=== PATIENT | female | born 1990 | race African-American/Black ===

== ENCOUNTER 2017-04-08 15:34 | Emergency (ER) | payer OTHER ==
[2017-04-08 15:39] VITALS: TEMP 98.1; BMI 24.9
--- NOTE | 2017-04-08 16:07 | PDOC ---
History of Present Illness - General Chief Complaint: Vaginal Bleeding Stated Complaint: VAGINAL BLEEDING Time Seen by Provider: 04/08/17 15:57 History Source: Patient Exam Limitations: No Limitations - History of Present Illness Travel History: No Initial Comments: 04/08/17 16:04 27 yr female with c/o vaginal bleeding for 9 days. Pt states lower abd "fullness , bloating" sensation . Pt states her last normal menstrual period was 03/13/17 for 7 days , then bleeding started on 03/30/17. no dizzyness or back pain, no urinary complaints. no control or history of any use of hormonal BC. Timing/Duration: reports: constant, getting worse Past History - Past Medical History Allergies/Adverse Reactions: Allergies Allergy/AdvReac Type Severity Reaction Status Date / Time No Known Allergies Allergy Verified 04/08/17 15:35 Home Medications: Ambulatory Orders Naproxen [Naprosyn -] 500 mg PO BID PRN #14 tablet 09/11/15 Other medical history: none - Immunization History Immunization Up to Date: No - Suicide/Smoking/Psychosocial Hx Smoking Status: Yes Smoking History: Never smoked Have you smoked in the past 12 months: Yes Number of Cigarettes Smoked Daily: 7 Information on smoking cessation initiated: Yes 'Breaking Loose' booklet given: 04/08/17 Hx Alcohol Use: No Drug/Substance Use Hx: No Substance Use Type: None Abd/GI Specific PMHX - Complaint Specific PMHX Colitis: No Diverticulitis: No Gall Bladder Disease: No GERD: No Hepatitis: No Irritable Bowel Synd (IBS): No Pancreatitis: No GI Ulcer Disease: No Review of Systems - Review of Systems Able to Perform ROS?: Yes Is the patient limited [place] proficient: No Constitutional: No: Symptoms Reported HEENTM: No: Symptoms Reported, Dental Problems Respiratory: No: Symptoms reported, Other Cardiac (ROS): No: Symptoms Reported ABD/GI: No: Symptoms Reported : Yes: Symptoms Reported Musculoskeletal: No: Symptoms Reported Integumentary: No: Symptoms Reported Neurological: No: Symptoms reported *Physical Exam - Vital Signs Last Vital Signs Temp Pulse Resp BP Pulse Ox 98.1 F 87 18 139/83 100 04/08/17 15:35 04/08/17 15:35 04/08/17 15:35 04/08/17 15:35 04/08/17 15:35 - Physical Exam General Appearance: Yes: Nourished, Appropriately Dressed HEENT: positive: EOMI, GLADIS. negative: TM Erythema Neck: positive: Supple. negative: Tender Respiratory/Chest: positive: Lungs Clear, Normal Breath Sounds Cardiovascular: positive: Regular Rhythm, Regular Rate Female Pelvic Exam: positive: normal external exam, vaginal bleeding Gastrointestinal/Abdominal: positive: Normal Bowel Sounds, Soft. negative: Tender Lymphatic: negative: Adenopathy Musculoskeletal: positive: Normal Inspection Extremity: positive: Normal Capillary Refill, Normal Inspection, Normal Range of Motion Neurologic: positive: Fully Oriented, Alert, Normal Mood/Affect, Normal Response , Motor Strength 11/02 Medical Decision Making - Medical Decision Making 04/08/17 16:56 cc: abnormal vaginal bleeding started on 03/30/17 denies pain, c/o lower abd "fullness" with occasional clots will r/o US 04/08/17 17:21 negative urine pt does not want to have US done in ER will follow with her prescription benefit specialist, I agree pt can follow up as outpatient as pt is stable having no acute distress, no dizzyness or pain. I have verbally given the instructions to the patient and all questions have been asked and answered. pt is satisfied with the care. 04/08/17 17:22 *DC/Admit/Observation/Transfer Diagnosis at time of Disposition: Abnormal vaginal bleeding - Discharge Dispostion Disposition: HOME Condition at time of disposition: Good - Referrals Referrals: STAFF,NOT ON [Primary Care Provider] - Shyann Person MD [Staff Physician] - Rochelle Morrison DO [Staff Physician] - - Patient Instructions Additional Instructions: please follow up with the coagulant dipper for further valuation of irregular bleeding consider using control if you do not want a you can take motrin (ibuprofen, advil 600-800mg every 6hrs ) to help[ with any cramping or discomfort return to ER for any worsening bleeding , pain or any other concerns
[2017-04-08 16:24] VITALS: BP 118/59; PULSE 65
[2017-04-08 16:36] LABS: URINE APPEARANCE CLEAR; URINE BILIRUBIN NEGATIVE (NEGATIVE); URINE BLOOD 3+ (NEGATIVE); URINE COLOR LTYELLOW; URINE GLUCOSE (UA) NEGATIVE (NEGATIVE); URINE KETONE NEGATIVE (NEGATIVE); URINE NITRITE NEGATIVE (NEGATIVE); URINE PROTEIN NEGATIVE (NEGATIVE); URINE UROBILINOGEN NEGATIVE mg/dL (0.2-1.0)
[2017-04-08 17:18] LABS: URINE MUCUS RARE; URINE RBC 1 /hpf (0-3); URINE WBC 2 /hpf (3-5)
[2017-04-08 20:15] LABS: URINE LEUK ESTERASE Negative (NEGATIVE)
== END 2017-04-08 18:25 | disposition home or self-care (01) ==
LOC: JER 15:34
DX: N93.9 Abnormal uterine and vaginal bleeding, unspecified (principal)
CPT/HCPCS: 81003; 81015; 84703; 99284-25